=== PATIENT | male | born 1995 | race Asian ===

== ENCOUNTER 2019-10-22 07:49 | Outpatient (CLI) | payer OTHER ==
--- NOTE | 2019-10-22 12:16 | ULT ---
THYROID ULTRASOUND: HISTORY: Left-sided pain in thyroid region. FINDINGS: Real-time imaging of the right and left lobes of the gland were performed. The right lobe measures 1 .4 x 1.7 x 4.5 cm and the left lobe 1.1 x 1.9 x 4.4 cm. No thyroid nodules are identified. In the region of patient's concern in the left neck region, a small lymph node is identified which do es not appear significantly enlarged. It appears similar to some nodes seen on the right. IMPRESSION: Unremarkable thyroid ultrasound. POS: [facility]
== END 2019-10-22 07:50 | disposition home or self-care (01) ==
LOC: SCSULT 07:49
PROVIDERS: ATTEND Specialist
DX: R22.1 Localized swelling, mass and lump, neck (principal)
CPT/HCPCS: 76536